=== PATIENT | female | born 1990 | race Caucasian/White ===

== ENCOUNTER 2017-04-12 01:56 | Inpatient (IN) | payer OTHER ==
[2017-04-12] MEDS ORDERED: Sodium Chloride 0.9% 10 ML Syringe FLUSH PRN (19:16)
[2017-04-12] MEDS ORDERED: Ondansetron 4 MG/2 ML SDV IVPUSH PRN ×2 (19:16→23:55)
[2017-04-12] MEDS ORDERED: Nalbuphine 20 MG/1 ML Amp IVPUSH PRN (19:16)
[2017-04-12] MEDS ORDERED: Oxytocin/Lactated Ringers 10 UNIT/1,000 ML BAG IV SCH ×2 (19:30)
--- NOTE | 2017-04-12 22:00 | PCM.LDHP ---
L&D History of Present Illness - General Date of Service: 04/12/17 Admit Problem/Dx: Patient Status Order with Admit Dx/Problem 04/12/17 19:16 Patient Status [ADT] Routine Admission Diagnosis/Problem Admission Diagnosis/Problem 04/12/17 21:48 39-3/7 week intrauterine , admitted for elective induction of labor secondary to distance from the hospital and multiparous status. Source of Information: Patient History Limitations: Reports: No Limitations - History of Present Illness Introduction:: Stephanie is a 27-year-old 2. 1001 white female is admitted for elective induction of labor. She is presently at 39-3/7 weeks gestational age as dated by a last menstrual period which started on 07/10/2016 placing her YOSEF of 2016. Patient presently is 2+ centimeters, 80% effaced, -2 station, posterior position, moderately soft. Baby is in vertex presentation. Artificial rupture membranes is discussed with patient and then undertaken. It resulted in clear amniotic fluid. Patient's having only occasional contractions. Nonstress test is reactive. OB/ care: Patient 2 para 1001. Her certain last menstrual period occurred on 07/10/2016 last for approximately 6 days. Cycles do not come on at absolute monthly basis but last period was definite. She had an ultrasound on 09/30/2016 which agreed with her last menstrual period. Dating. Another one on 08/24/2016 and yet a third and on 12/02/2016 well consistent with her YOSEF. Her previous delivery included: 1. Female infant born 10/16/2014 at 38 weeks gestational age after 7 hours of labor, baby weighed 7 lbs. 13 oz. and was born born vaginally. Child's name is Marleen. Patient's course was relatively on Tre. She had regular care from approximately 11-5/7 weeks gestational age. She was seen on a regular basis. Her weight increased from 144.8 pounds up to 171 pounds for a 26 pound weight gain. Fundal height growth was appropriate. Vital signs and stable throughout the course. The Simms depression screening done on 12/30/2016 was 3 end scaled 30. B strep screen is negative. Patient plans to use an epidural in labor and delivery. Tdap immunization was given on . Laboratory testing to see shows blood to be O+. Antibiotic screen is negative. Hemoglobin at first visit was 14.7 and platelets were 226,000. Pap smear was normal. Rubella titer shows immunity and RPR is nonreactive. Urine culture showed probable staph species in 200 colonies per milliliterprobable contaminants. Hepatitis B and HIV S's were negative. Gonorrhea and chlamydia assays were both negative. Her second trimester testing including diabetic screening tests which were borderline at 132. Group B strep screen was negative. Allergies none Medications: 1. tabs 1 daily 2. Vitamin B 12 tablets one daily 3 vitamin D 1000 units daily Past medical history: 1. Normal spontaneous vaginal delivery 10/16/20147 lbs. 13 oz. female . Past surgical history: 1. Appendectomy 2003. 2. Anesthesia was resetting of her little finger 2001. Family history is negative for anesthesia problems, bleeding concerns, blood clotting problems. Social history: Patient is . is Ruben Shea. She lives in [facility] [place]. She does not use any significant amounts of alcohol, drugs or tobacco. She works at the [employer]. Review of systems: Skin-negative Cardio-vascularno chest pain or exercise tolerance Lungs/respiratoryno shortness of breath or asthma Breastschanges associated with only Abdomen/GI-negative -consistent with Neurology-negative. Physical exam: In general patient is a well-developed, well-nourished, pleasant female stated age in no distress. She is 3 and appears stated age. On last evaluation clinic her weight was 170 150s increased from 144.8 at her first visit with blood pressures 105/68 and heart rate was 134. Gravid height was 56. Pregravid BMI was 20.8 In general patient is well-developed, well-nourished, pleasant young female in no acute distress. Skin Skin is warm and dry without lesions. HEENT, neck and back within normal limits. Cardiovascular exam shows regular rate and rhythm without murmurs. Breast exam deferred have been done at first it was found to be normal. Patient plans to bottlefeed. Abdomen is protuberant with fundal height of 38+ centimeters, baby in vertex presentation. Last cervical exam is consistent with today's cervical exam inadequate was 2+ centimeters/90% effaced/very soft/posterior position and/-2 station Extremities and neurological exam grossly within normal limits. - Related Data Allergies/Adverse Reactions: Allergies Allergy/AdvReac Type Severity Reaction Status Date / Time No Known Allergies Allergy Verified 04/12/17 19:07 Home Medications: Home Meds PNV95/Ferrous Fumarate/FA [ Vitamin Tablet] 1 tab PO DAILY 04/12/17 [ History] Ibuprofen [IJD: Ibuprofen] 600 mg PO Q4H PRN #30 tablet 04/14/17 [Rx] Lillian Kerr [Tucks] 1 pad TOP ASDIRECTED PRN #30 pad 04/14/17 [Rx] Past Medical History [employer] History: Reports: - Past Surgical History GI Surgical History: Reports: Appendectomy Musculoskeletal Surgical History: Reports: Other (See Below) Other Musculoskeletal Surgeries/Procedures:: surgery to reset pinky Social & Family History - Tobacco Use Smoking Status *Q: Never Smoker Second Hand Smoke Exposure: No - Caffeine Use Caffeine Use: Reports: Coffee, Soda - Recreational Drug Use Recreational Drug Use: No H&P Review of Systems - Review of Systems: Review Of Systems: See Below L&D Exam - Exam Exam: See Below - Vital Signs Weight: 78.698 kg - Patient Data Lab Results Last 24 hrs: Laboratory Results - last 24 hr 04/12/17 Range/Units 19:40 WBC 8.66 (3.98-10.04) K/mm3 RBC 4.02 (3.98-5.22) M/mm3 Hgb 12.7 (11.2-15.7) gm/L Hct 36.7 (34.1-44.9) % MCV 91.3 (79.4-94.8) fl MCH 31.6 (25.6-32.2) pg MCHC 34.6 (32.2-35.5) g/dl RDW Std Deviation 43.3 (36.4-46.3) fL Plt Count 171 L (182-369) K/mm3 MPV 11.0 (9.4-12.3) fl Neut % (Auto) 67.0 (34.0-71.1) % Lymph % (Auto) 25.1 (19.3-51.7) % [place] % (Auto) 6.5 (4.7-12.5) % Eos % (Auto) 1.0 (0.7-5.8) Baso % (Auto) 0.1 (0.1-1.2) % Neut # (Auto) 5.80 (1.56-6.13) K/mm3 Lymph # (Auto) 2.17 (1.18-3.74) K/mm3 [place] # (Auto) 0.56 H (0.24-0.36) K/mm3 Eos # (Auto) 0.09 (0.04-0.36) K/mm3 Baso # (Auto) 0.01 (0.01-0.08) K/mm3 Result Diagrams: 04/14/17 05:18 Problem List Initiated/Reviewed/Updated: Yes Orders Last 24hrs: Active Orders 24 hr Category Date Time Status Patient Status [ADT] Routine ADT 04/12/17 19:16 Active Activity as Tolerated [RC] PFP Care 04/12/17 19:16 Active Communication Order [RC] ASDIRECTED Care 04/12/17 19:16 Active Notify Provider [RC] PFP Care 04/12/17 19:16 Active Notify Provider [RC] PRN Care 04/12/17 19:16 Active Peripheral IV Care [RC] . DIRECTED Care 04/12/17 19:16 Active Pump Management, Intrathecal [RC] ASDIRECTED Care 04/12/17 19:16 Active Vital Signs [RC] PER UNIT ROUTINE Care 04/12/17 19:16 Active Clear Liquid Diet [DIET] Diet 04/12/17 Dinner Active Lactated Ringers [Ringers, Lactated] 1,000 ml Med 04/12/17 19:30 Active IV ASDIRECTED Nalbuphine [Nubain] Med 04/12/17 19:16 Active 10 mg IVPUSH Q2H PRN Ondansetron [Zofran] Med 04/12/17 19:16 Active 4 mg IVPUSH Q4H PRN Oxytocin/Lactated Ringers [Pitocin in LR 10 Units/1,000 Med 04/12/17 19:30 Active ML] 10 unit in 1,000 ml IV TITRATE Oxytocin/Lactated Ringers [Pitocin in LR 10 Units/1,000 Med 04/12/17 19:30 Active ML] 10 unit in 1,000 ml IV TITRATE Sodium Chloride 0.9% [Saline Flush] Med 04/12/17 19:16 Active 10 ml FLUSH ASDIRECTED PRN Electronic Heart Tones Ext w TOCO [WOMSER] Oth 04/12/17 19:16 Ordered Routine Electronic Heart Tones Internal [WOMSER] Per Unit Ot 04/12/17 19:16 Ordered Routine Peripheral IV Insertion Adult [OM.PC] Routine Ot 04/12/17 19:16 Ordered Resuscitation Status Routine Resus Stat 04/12/17 19:16 Ordered Medication Orders Lactated Ringer's (Ringers, Lactated) 1,000 mls @ 100 mls/hr IV ASDIRECTED BLAKE Oxytocin/Lactated Ringer's (Pitocin In Lr 10 Units/1,000 Ml) 10 unit in 1,000 mls @ 500 mls/hr IV TITRATE BLAKE Oxytocin/Lactated Ringer's (Pitocin In Lr 10 Units/1,000 Ml) 10 unit in 1,000 mls @ 12 mls/hr IV TITRATE BLAKE; 2 MUNITS/MIN PRN Reason: Protocol Nalbuphine HCl (Nubain) 10 mg IVPUSH Q2H PRN PRN Reason: Pain (moderate 4-6) Ondansetron HCl (Zofran) 4 mg IVPUSH Q4H PRN PRN Reason: Nausea/Vomiting Sodium Chloride (Saline Flush) 10 ml FLUSH ASDIRECTED PRN PRN Reason: Keep Vein Open
[2017-04-12] MEDS: Lactated Ringers 1,000 ML IV SCH (22:20)
[2017-04-12] MEDS ORDERED: Bupivacaine/fentaNYL/NS 100 ML Bag EPIDUR SCH (23:45)
[2017-04-12] MEDS ORDERED: fentaNYL 100 MCG/2 ML SDV EPIDUR PRN (23:55)
[2017-04-12] MEDS ORDERED: fentaNYL 100 MCG/2 ML SDV ONE (23:55)
[2017-04-12] MEDS ORDERED: ePHEDrine 50 MG/ML SDV IVPUSH PRN (23:55)
--- NOTE | 2017-04-12 23:59 | PCM.PREANE ---
Preanesthetic Assessment - Anesthesia/Transfusion/Family Hx Anesthesia History: Prior Anesthesia Without Reaction Family History of Anesthesia Reaction: No Transfusion History: No Prior Transfusion(s) Intubation History: Unknown - Review of Systems General: No Symptoms Pulmonary: No Symptoms Cardiovascular: No Symptoms Gastrointestinal: No symptoms Neurological: No Symptoms, Numbness (bilateral feet with water retention) Other: Reports: None - Physical Assessment NPO Status Date: 04/12/17 NPO Status Time: 17:30 Pulse: 90 O2 Sat by Pulse Oximetry: 99 Respiratory Rate: 22 Blood Pressure: 120/74 Temperature: 36.7 C Height: 1.68 m Weight: 78.698 kg ASA Class: 2 Mental Status: Alert & Oriented x3 Airway Class: Mallampati = 2 Dentition: Reports: Normal Dentition, Caries Thyro-Mental Finger Breadths: 3 Mouth Opening Finger Breadths: 3 ROM/Head Extension: Full Lungs: Clear to auscultation, Normal respiratory effort Cardiovascular: Regular Rate, Regular Rhythm, No Murmurs - Lab Values: Laboratory Last Values WBC 8.66 K/mm3 (3.98-10.04) 04/12/17 19:40 RBC 4.02 M/mm3 (3.98-5.22) 04/12/17 19:40 Hgb 12.7 gm/L (11.2-15.7) 04/12/17 19:40 Hct 36.7 % (34.1-44.9) 04/12/17 19:40 MCV 91.3 fl (79.4-94.8) 04/12/17 19:40 MCH 31.6 pg (25.6-32.2) 04/12/17 19:40 MCHC 34.6 g/dl (32.2-35.5) 04/12/17 19:40 RDW Std Deviation 43.3 fL (36.4-46.3) 04/12/17 19:40 Plt Count 171 K/mm3 (182-369) L 04/12/17 19:40 MPV 11.0 fl (9.4-12.3) 04/12/17 19:40 Neut % (Auto) 67.0 % (34.0-71.1) 04/12/17 19:40 Lymph % (Auto) 25.1 % (19.3-51.7) 04/12/17 19:40 [place] % (Auto) 6.5 % (4.7-12.5) 04/12/17 19:40 Eos % (Auto) 1.0 (0.7-5.8) 04/12/17 19:40 Baso % (Auto) 0.1 % (0.1-1.2) 04/12/17 19:40 Neut # (Auto) 5.80 K/mm3 (1.56-6.13) 04/12/17 19:40 Lymph # (Auto) 2.17 K/mm3 (1.18-3.74) 04/12/17 19:40 [place] # (Auto) 0.56 K/mm3 (0.24-0.36) H 04/12/17 19:40 Eos # (Auto) 0.09 K/mm3 (0.04-0.36) 04/12/17 19:40 Baso # (Auto) 0.01 K/mm3 (0.01-0.08) 04/12/17 19:40 Above labs reviewed and noted. 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: Reports: - Past Surgical History GI Surgical History: Reports: Appendectomy Musculoskeletal Surgical History: Reports: Other (See Below) Other Musculoskeletal Surgeries/Procedures:: surgery to reset pinky - SUBSTANCE USE Smoking Status *Q: Never Smoker Second Hand Smoke Exposure: No Recreational Drug Use History: No - HOME MEDS Home Medications: Home Meds PNV95/Ferrous Fumarate/FA [ Vitamin Tablet] 1 tab PO DAILY 04/12/17 [ History] - CURRENT (IN HOUSE) MEDS Current Meds: Current Medications Ephedrine Sulfate (Ephedrine Sulfate) 5 mg IVPUSH ASDIRECTED PRN PRN Reason: Hypotension Fentanyl (Sublimaze) 100 mcg EPIDUR Q3H PRN PRN Reason: Pain Fentanyl/Bupivacaine HCl (Fentanyl/Bupivacaine/Ns 2 Mcg-0.125% 100 Ml) 100 ml EPIDUR ASDIRECTED BLAKE Lactated Ringer's (Ringers, Lactated) 1,000 mls @ 100 mls/hr IV ASDIRECTED BLAKE Last Admin: 04/12/17 22:20 Dose: 100 mls/hr Oxytocin/Lactated Ringer's (Pitocin In Lr 10 Units/1,000 Ml) 10 unit in 1,000 mls @ 500 mls/hr IV TITRATE BLAKE Oxytocin/Lactated Ringer's (Pitocin In Lr 10 Units/1,000 Ml) 10 unit in 1,000 mls @ 12 mls/hr IV TITRATE BLAKE; 2 MUNITS/MIN PRN Reason: Protocol Last Admin: 04/12/17 22:17 Dose: 2 munits/min, 12 mls/hr Nalbuphine HCl (Nubain) 10 mg IVPUSH Q2H PRN PRN Reason: Pain (moderate 4-6) Ondansetron HCl (Zofran) 4 mg IVPUSH Q4H PRN PRN Reason: Nausea/Vomiting Ondansetron HCl (Zofran) 4 mg IVPUSH ONETIME PRN PRN Reason: Nausea/Vomiting Sodium Chloride (Saline Flush) 10 ml FLUSH ASDIRECTED PRN PRN Reason: Keep Vein Open
[2017-04-13] MEDS: Lactated Ringers 1,000 ML IV SCH (01:01)
--- NOTE | 2017-04-13 02:17 | PCM.SN ---
- Free Text/Narrative Note: Delivery note: Stephanie was admitted to labor and delivery for elective induction of labor at 39-3/7 weeks gestational age on the evening of 04/12/2017. She underwent artificial rupture membranes with resultant clear amniotic fluid. Patient started in a very mild course of labor and was later augmented with 1-2 milliunits of Pitocin per minute. With this she achieved complete cervical dilation by approximately 0100 hrs on 04/13/2017. Patient pushed for 3 contractions and delivered a viable, dumont, male infant with Apgars of 8 and 9, a weight of 3210 g (7 pounds 1.2 ounces), a length of 18.5 inches in a left occiput anterior position. Her perineum remained intact. No lacerations occurred. Baby was placed on mom's abdomen after delivery. Cord was clamped 2 and cut by the patient's mother. There were 3 blood vessels in the umbilical cord. Cord blood was obtained. The placenta delivered spontaneously in a James presentation and appeared intact and complete. It was discarded per patient desire. Pitocin was administered after delivery of the baby to facilitate increasing uterine tone and slow bleeding. Minimal bleeding was encountered at no more than 100 mL of total blood loss. Patient plans to bottlefeed. Condition: good.
[2017-04-13] MEDS ORDERED: Benzocaine/Menthol 20%-0.5% Spray 56 GM Canister TOP PRN (05:36)
[2017-04-13] MEDS ORDERED: Bupivacaine 0.25% 10 ML SDV ONE (05:36)
[2017-04-13] MEDS ORDERED: Lanolin 100% Cream 7 GM Tube TOP PRN (05:36)
[2017-04-13] MEDS ORDERED: Docusate Sodium 100 MG Cap PO PRN (05:36)
[2017-04-13] MEDS ORDERED: Witch Hazel Medicated Pads 100/Jar TOP PRN (05:36)
[2017-04-13] MEDS ORDERED: Prenatal Multivitamin with Calcium/Folic Acid/Iron Tab PO SCH (09:00)
[2017-04-13] MEDS: Ibuprofen 600 MG Tab PO PRN ×2 (10:12→17:42)
--- NOTE | 2017-04-13 11:21 | PCM48HPAN ---
Post Anesthesia Note - EVALUATION WITHIN 48HRS OF ANESTHETIC Vital Signs in Normal Range: Yes Patient Participated in Evaluation: Yes Respiratory Function Stable: Yes Airway Patent: Yes Cardiovascular Function Stable: Yes Hydration Status Stable: Yes Pain Control Satisfactory: Yes Nausea and Vomiting Control Satisfactory: Yes Mental Status Recovered: Yes - COMMENTS/OBSERVATIONS Free Text/Narrative:: Patient doing well resting in bed. Denies any back pain, residual weakenss to LE. Pt did complain of a slight headache but stated it may be related to not eating anything yet today. Educated her on the s/s of PDPH and if she has any of the signs to let the nurse know.
[2017-04-14] MEDS: Ibuprofen 600 MG Tab PO PRN (05:39)
--- NOTE | 2017-04-14 06:06 | PCM.DCSUM1 ---
Discharge Summary - Hospital Course Free Text/Narrative:: Stephanie was admitted to labor and delivery for elective induction of labor at 39- 3/7 weeks gestational age on the evening of 04/12/2017. She underwent artificial rupture membranes with resultant clear amniotic fluid. Patient started in a very mild course of labor and was later augmented with 1-2 milliunits of Pitocin per minute. With this she achieved complete cervical dilation by approximately 0100 hrs on 04/13/2017. Patient pushed for 3 contractions and delivered a viable, dumont, male infant with Apgars of 8 and 9, a weight of 3210 g (7 pounds 1.2 ounces), a length of 18.5 inches in a left occiput anterior position. Her perineum remained intact. No lacerations occurred. Baby was placed on mom's abdomen after delivery. Cord was clamped 2 and cut by the patient's mother. There were 3 blood vessels in the umbilical cord. Cord blood was obtained. The placenta delivered spontaneously in a James presentation and appeared intact and complete. It was discarded per patient desire. Pitocin was administered after delivery of the baby to facilitate increasing uterine tone and slow bleeding. Minimal bleeding was encountered at no more than 100 mL of total blood loss. Patient plans to bottlefeed. Postpartem the patient has done very well. She is having minimal lochia, is ambulating well and has had normal vital signs. She is bottle feeding. She is desiring to be discharged home. Condition: good. - Discharge Data Discharge Date: 04/14/17 Discharge Disposition: Home, Self-Care 01 Condition: Good - Patient Instructions Diet: Regular Diet as Tolerated Activity: As Tolerated (No intercourse or tampons until bleeding resolves) Driving: May Drive Today Showering/Bathing: May Shower (May take a bath) Notify Provider of: Fever, Increased Pain, Swelling and Redness, Nausea and/or Vomiting - Discharge Plan Home Medications: Home Meds PNV95/Ferrous Fumarate/FA [ Vitamin Tablet] 1 tab PO DAILY 04/12/17 [ History] Ibuprofen [IJD: Ibuprofen] 600 mg PO Q4H PRN #30 tablet 04/14/17 [Rx] Lillian Kerr [Tucks] 1 pad TOP ASDIRECTED PRN #30 pad 04/14/17 [Rx] Referrals: Sami Clifford MD [Primary Care Provider] - [facility] - Discharge Summary/Plan Comment DC Time >30 min.: No Discharge Summary/Plan Comment: Discharge instructions: 1. Discharge home 2. Regular, high fiber diet 3. Diet, activity and follow-up were discussed in detail with patient. 4. Precautions given concern increased pain, bleeding, temperature, signs/ symptoms of DVT/PE. 5. Medications per home medication was printed, discussed was given to the patient. 6. Return to clinic-Dr. Clifford-6 weeks-[facility] Diagnosis: 39 week -delivered Condition: Good - Patient Data Vitals - Most Recent: Last Vital Signs Temp 36.7 C 04/13/17 19:19 Pulse 87 04/13/17 19:19 Resp 16 04/13/17 11:39 BP 122/75 04/13/17 19:19 Pulse Ox 99 04/13/17 19:19 Weight - Most Recent: 78.698 kg I&O - Last 24 hours: Intake & Output 04/13/17 04/13/17 04/14/17 14:59 22:59 06:59 Intake Total 240 Balance 240 Med Orders - Current: Current Medications Benzocaine/Menthol (Dermoplast Pain Relief [place]) 0 gm TOP ASDIRECTED PRN PRN Reason: Perineal Comfort Measure Docusate Sodium (Colace) 100 mg PO BID PRN PRN Reason: Constipation Emollient Ointment (Lansinoh Hpa) 0 gm TOP ASDIRECTED PRN PRN Reason: Sore Nipples Ibuprofen (Motrin) 600 mg PO Q4H PRN PRN Reason: Pain Last Admin: 04/14/17 05:39 Dose: 600 mg Prenat Multivit/Murphys/Iron/Folic Ac ( Plus Iron) 1 each PO DAILY BLAKE Last Admin: 04/13/17 10:12 Dose: 1 each Witch Usha (Tucks) 1 pad TOP ASDIRECTED PRN PRN Reason: Hemorrhoid pain Discontinued Medications Ephedrine Sulfate (Ephedrine Sulfate) 5 mg IVPUSH ASDIRECTED PRN PRN Reason: Hypotension Fentanyl (Sublimaze) 100 mcg EPIDUR Q3H PRN PRN Reason: Pain Last Admin: 04/13/17 00:17 Dose: 100 mcg Fentanyl (Sublimaze) Confirm Administered Dose 100 mcg .ROUTE .STK-MED ONE Stop: 04/12/17 23:56 Last Admin: 04/13/17 13:42 Dose: Not Given Fentanyl/Bupivacaine HCl (Fentanyl/Bupivacaine/Ns 2 Mcg-0.125% 100 Ml) 100 ml EPIDUR ASDIRECTED BLAKE Last Admin: 04/13/17 00:18 Dose: 100 ml Lactated Ringer's (Ringers, Lactated) 1,000 mls @ 100 mls/hr IV ASDIRECTED BLAKE Last Admin: 04/13/17 01:01 Dose: 100 mls/hr Oxytocin/Lactated Ringer's (Pitocin In Lr 10 Units/1,000 Ml) 10 unit in 1,000 mls @ 500 mls/hr IV TITRATE BLAKE Oxytocin/Lactated Ringer's (Pitocin In Lr 10 Units/1,000 Ml) 10 unit in 1,000 mls @ 12 mls/hr IV TITRATE BLAKE; 2 MUNITS/MIN PRN Reason: Protocol Last Titration: 04/13/17 01:21 Dose: 0 munits/min, 0 mls/hr Nalbuphine HCl (Nubain) 10 mg IVPUSH Q2H PRN PRN Reason: Pain (moderate 4-6) Ondansetron HCl (Zofran) 4 mg IVPUSH Q4H PRN PRN Reason: Nausea/Vomiting Ondansetron HCl (Zofran) 4 mg IVPUSH ONETIME PRN PRN Reason: Nausea/Vomiting Sodium Chloride (Saline Flush) 10 ml FLUSH ASDIRECTED PRN PRN Reason: Keep Vein Open *Q Meaningful Use (DIS) - VTE *Q VTE Criteria *Q: - Stroke *Q Stroke Criteria *Q: - AMI *Q AMI Criteria *Q:
[2017-04-14 06:08] VITALS: BP 111/67
== END 2017-04-14 08:37 | disposition home or self-care (01) | DRG 775 ==
LOC: JD.OB 01:56 → OBSVTOIN 04-13 01:56 → JD.OB 04-13 01:56
PROVIDERS: ADMIT Obstetrics & Gynecology; ATTEND Obstetrics & Gynecology
PROC: 10E0XZZ Delivery of Products of Conception, External Approach (ICD-10-PCS; principal; 2017-04-13)
PROC: 10907ZC Drainage of Amniotic Fluid, Therapeutic from Products of Conception, Via Natural or Artificial Opening (ICD-10-PCS; 2017-04-13)
PROC: 3E033VJ Introduction of Other Hormone into Peripheral Vein, Percutaneous Approach (ICD-10-PCS; 2017-04-13)
PROC: 00HU33Z Insertion of Infusion Device into Spinal Canal, Percutaneous Approach (ICD-10-PCS; 2017-04-13)
PROC: 3E0R3CZ (ICD-10-PCS; 2017-04-13)
DX: O80 Encounter for full-term uncomplicated delivery (principal); Z3A.40 40 weeks gestation of pregnancy; Z37.0 Single live birth
CPT/HCPCS: 01967; 36415; 85025; 85027; A9270-GY; J2590; J3010; J7120